=== PATIENT | female | born 1940 | race Caucasian/White ===

== ENCOUNTER 2020-11-24 07:26 | Outpatient (CLI) | payer MEDICARE ==
--- NOTE | 2020-11-24 07:53 | CT ---
Exam: Head CT without contrast HISTORY: Mental decline. Weakness. Memory loss. COMPARISON: none FINDINGS: Hemorrhage: No intraparenchymal hemorrhage or extra-axial hematoma. Brain parenchyma: Cortical kay-white matter differentiation is preserved. No mass effect or midline shift. 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 There are chronic small vessel ischemic changes of the white matter. Ventricular system: Ventricles and sulci are patent and symmetric. Calvarium: Intact. Sinuses and mastoid air cells: Adequate aeration. IMPRESSION: No acute intracranial process.
== END 2020-11-24 07:27 | disposition home or self-care (01) ==
LOC: MADRAD 07:26
PROVIDERS: ATTEND Family Medicine
DX: R41.81 Age-related cognitive decline (principal)
CPT/HCPCS: 70450

== ENCOUNTER 2024-03-24 07:35 | Emergency (ER) | payer MEDICARE, BC | END 2024-03-24 08:45 | disposition home or self-care (01) | LOC: MADERS 07:35 | DX: S93.602A Unspecified sprain of left foot, initial encounter (principal); E78.5 Hyperlipidemia, unspecified; I10 Essential (primary) hypertension; Z87.891 Personal history of nicotine dependence; Z79.899 Other long term (current) drug therapy; W19.XXXA Unspecified fall, initial encounter ==